=== PATIENT | male | born 1960 | race Caucasian/White ===

== ENCOUNTER 2020-01-13 10:36 | Day surgery (SDC) | payer MEDICAID ==
[~2020-01-13] VITALS: Ht 180.3 cm; Wt 63.9 kg
[2020-01-13 11:26] VITALS: BP 125/75
[2020-01-13] MEDS ORDERED: SODIUM CHLORIDE 0.9% 1,000 ML IV SCH (11:30)
[2020-01-13] MEDS ORDERED: CEFAZOLIN 1,000 MG in SODIUM CHLORIDE 0.9% 50 ML IV SCH (11:30)
[2020-01-13] MEDS ORDERED: CEFAZOLIN PMX 1GM/50ML 50 ML ONE (11:44)
[2020-01-13] MEDS ORDERED: PLEASE ENTER ALLERGIES MC SCH (12:00)
[2020-01-13] MEDS ORDERED: LIDOCAINE 1%, 20ML ONE (12:26)
[2020-01-13] MEDS ORDERED: FENTANYL PF 100 MCG/2ML ONE (13:00)
[2020-01-13] MEDS ORDERED: NALOXONE 1 MG/ML, 2ML ONE (13:01)
== END 2020-01-13 14:45 | disposition home or self-care (01) ==
LOC: OUT 10:36
PROVIDERS: ATTEND Internal Medicine Hematology & Oncology
DX: C01 Malignant neoplasm of base of tongue (principal); I10 Essential (primary) hypertension; E11.9 Type 2 diabetes mellitus without complications; Z79.899 Other long term (current) drug therapy
CPT/HCPCS: 36561; 76937; 77001; C1788; J1642; J3010; J7030; J2310